=== PATIENT | male | born 1980 | race Caucasian/White ===

== ENCOUNTER 2019-05-06 22:50 | Inpatient (IN) | payer MEDICARE, MEDICAID ==
[~2019-05-06] VITALS: Ht 162.6 cm; Wt 72.1 kg
[2019-05-07 00:25] LABS: BASOPHILS % (AUTO) 0.5 % (0.0-2.0); EOSINOPHILS % (AUTO) 0.4 % (1.0-6.0); HEMOGLOBIN 13.3 g/dL (13.5-17.5); LYMPHOCYTES # (AUTO) 1.3 K/uL (1.0-4.8); LYMPHOCYTES % (AUTO) 14.3 % (22.0-44.0); MEAN CORPUSCULAR HEMOGLOBIN 30.2 pg (26.0-34.0); MEAN CORPUSCULAR HGB CONC 33.2 G/dL (31.0-37.0); MEAN CORPUSCULAR VOLUME 91 fL (80-100); MONOCYTES # (AUTO) 0.5 K/uL (0.1-1.0); MONOCYTES % (AUTO) 5.1 % (2.0-9.0); NEUTROPHILS # (AUTO) 7.1 K/uL (1.8-7.7); NEUTROPHILS % (AUTO) 79.7 % (40.0-70.0); PLATELET COUNT (AUTO) 251 K/uL (150-450); RED CELL DISTRIBUTION WIDTH 14.3 % (11.5-14.5)
[2019-05-07 00:31] LABS: ANION GAP 9 mmol/L (8-16); CALCIUM, TOTAL 8.5 mg/dL (8.8-10.5); CARBON DIOXIDE 26 mmol/L (22-29); CHLORIDE 99 mmol/L (98-107); CREATININE 0.98 mg/dL (0.60-1.30); GLOMERULAR FILTR. RATE CALC > 60 mL/min (>60); GLUCOSE,RANDOM 94 mg/dL (70-110); POTASSIUM 3.4 mmol/L (3.5-5.1); SODIUM SERUM 134 mmol/L (136-145); UREA NITROGEN, BLOOD 12 mg/dL (7-18)
[2019-05-07 00:37] LABS: ALANINE AMINOTRANSFERASE 26 U/L (12-78); ALBUMIN 4.2 g/dL (3.4-5.0); ALKALINE PHOSPHATASE 87 U/L (46-116); ASPARTATE AMINOTRANSFERASE 17 U/L (15-37); BILIRUBIN,TOTAL 0.7 mg/dL (0.1-1.0); TOTAL PROTEIN, SERUM 7.3 g/dL (6.4-8.2)
[2019-05-07] MEDS ORDERED: LORazepam 2 MG TABLET PO ONE (00:45)
[2019-05-07] MEDS ORDERED: HALOPERIDOL 5 MG TABLET PO ONE (00:45)
[2019-05-07 01:07] LABS: AMPHET/METH SCREEN,URINE POSITIVE (NEGATIVE); BARBITURATE SCREEN, URINE NEGATIVE (NEGATIVE); BENZODIAZEPINES SCREEN,URINE NEGATIVE (NEGATIVE); CANNABINOID SCREEN,URINE NEGATIVE (NEGATIVE); COCAINE SCREEN,URINE NEGATIVE (NEGATIVE); METHADONE SCREEN, URINE NEGATIVE (NEGATIVE); OPIATE SCREEN,URINE NEGATIVE (NEGATIVE); PHENCYCLIDINE SCREEN,URINE NEGATIVE (NEGATIVE)
[2019-05-07] MEDS ORDERED: DiphenhydrAMINE HCL 50 MG/ML VIAL IM ONE (01:15)
[2019-05-07] MEDS ORDERED: ZOLPIDEM TARTRATE 10 MG TABLET PO PRN (01:30)
[2019-05-07] MEDS ORDERED: HALOPERIDOL 5 MG TABLET PO PRN (01:30)
[2019-05-07] MEDS ORDERED: LORazepam 2 MG TABLET PO PRN (01:30)
[2019-05-07] MEDS ORDERED: 0.9% SODIUM CHLORIDE 10 ML SYRINGE IVP PRN (01:45)
[2019-05-07] MEDS ORDERED: ACETAMINOPHEN 325 MG TABLET PO PRN ×2 (01:45→13:00)
[2019-05-07] MEDS ORDERED: HALOPERIDOL LACTATE 5 MG/ML VIAL IM ONE (02:45)
[2019-05-07 03:07] LABS: APPEARANCE,URINE CLEAR (CLEAR); BILIRUBIN,URINE NEGATIVE (NEGATIVE); GLUCOSE, URINE (UA) NEGATIVE (NEGATIVE); KETONES,URINE >=80 mg/dL (NEGATIVE); LEUKOCYTE ESTERASE ,URINE NEGATIVE (NEGATIVE); NITRATE,URINE NEGATIVE (NEGATIVE); OCCULT BLOOD,URINE NEGATIVE (NEGATIVE); PH,URINE 5.5 (5.0-8.0); PROTEIN,URINE NEGATIVE (NEGATIVE); UROBILINOGEN,URINE 0.2 mg/dL (<=1.0)
[2019-05-07 04:26] VITALS: BP 113/64
[2019-05-07] MEDS ORDERED: INFLUENZA VIRUS VACCINE QVS 2019-20 (3YR+)/PF 60 MCG/0.5 ML SYRINGE IM ONE (06:00)
[2019-05-07] MEDS: OLANZapine 5 MG TABLET PO SCH ×2 (09:40→21:27)
[2019-05-07] MEDS: TRIHEXYPHENIDYL HCL 5 MG TABLET PO SCH ×2 (10:01→21:27)
[2019-05-07] MEDS ORDERED: IBUPROFEN 400 MG TABLET PO PRN (13:00)
[2019-05-07] MEDS ORDERED: CloNIDine HCL 0.1 MG TABLET PO PRN (13:00)
[2019-05-07] MEDS ORDERED: MAGNESIUM HYDROXIDE SUSPENSION 30 ML UDCUP PO PRN (13:00)
[2019-05-07] MEDS ORDERED: DOCUSATE SODIUM 100 MG CAPSULE PO PRN (13:00)
[2019-05-07] MEDS ORDERED: PETROLATUM,WHITE 28 GM JELLY TP PRN (13:00)
[2019-05-07] MEDS ORDERED: ONDANSETRON HCL 4 MG TABLET PO PRN (13:00)
[2019-05-07] MEDS ORDERED: LOPERAMIDE HCL 2 MG CAPSULE PO PRN (13:00)
[2019-05-07] MEDS ORDERED: GuaiFENesin/D-METHORPHAN [SUGAR-FREE] 200-20MG/10 ML SYRUP UDCUP PO PRN (13:00)
[2019-05-07] MEDS ORDERED: ALBUTEROL SULFATE HFA 90 MCG/PUFF 8 GM INHALER IH PRN (13:00)
[2019-05-07] MEDS ORDERED: MAG HYDROX/AL HYDROX/SIMETH ES 30 ML SUSPENSION UDCUP PO PRN (13:00)
[2019-05-07] MEDS ORDERED: NICOTINE 14 MG/24 HOUR PATCH TD PRN (13:00)
[2019-05-08 07:04] LABS: CHOL/HDL RATIO 3.5 (4.2-7.3)
[2019-05-08 08:00] VITALS: BP 112/69
[2019-05-08] MEDS: OLANZapine 5 MG TABLET PO SCH ×2 (08:37→20:30)
[2019-05-08] MEDS: TRIHEXYPHENIDYL HCL 5 MG TABLET PO SCH ×2 (08:37→20:30)
[2019-05-08 16:06] VITALS: BP 102/98
[2019-05-09 08:11] VITALS: BP 109/63
[2019-05-09] MEDS: TRIHEXYPHENIDYL HCL 5 MG TABLET PO SCH ×2 (08:40→20:09)
[2019-05-09] MEDS: OLANZapine 5 MG TABLET PO SCH (08:40)
[2019-05-09 16:05] VITALS: BP 107/64
[2019-05-09] MEDS: OLANZapine 7.5 MG TABLET PO SCH (20:10)
[2019-05-10] MEDS: TRIHEXYPHENIDYL HCL 5 MG TABLET PO SCH ×2 (08:12→20:20)
[2019-05-10] MEDS: OLANZapine 7.5 MG TABLET PO SCH ×2 (08:12→20:21)
[2019-05-10 13:48] VITALS: BP 114/61
[2019-05-10 16:09] VITALS: BP 112/78
[2019-05-11 08:20] VITALS: BP 119/72
[2019-05-11] MEDS: TRIHEXYPHENIDYL HCL 5 MG TABLET PO SCH ×2 (08:52→20:28)
[2019-05-11] MEDS: OLANZapine 7.5 MG TABLET PO SCH ×2 (08:52→20:29)
[2019-05-11 16:40] VITALS: BP 128/83
[2019-05-12 08:00] VITALS: BP 116/72
[2019-05-12] MEDS: OLANZapine 7.5 MG TABLET PO SCH ×2 (08:44→20:22)
[2019-05-12] MEDS: TRIHEXYPHENIDYL HCL 5 MG TABLET PO SCH ×2 (08:44→20:22)
[2019-05-12 16:00] VITALS: BP 126/86
[2019-05-13] MEDS: OLANZapine 7.5 MG TABLET PO SCH ×2 (09:36→20:32)
[2019-05-13] MEDS: TRIHEXYPHENIDYL HCL 5 MG TABLET PO SCH ×2 (09:36→20:31)
[2019-05-13 15:19] VITALS: BP 120/80
[2019-05-13 17:00] VITALS: BP 129/88
[2019-05-14 00:05] VITALS: BP 102/60
[2019-05-14 08:00] VITALS: BP 126/81
[2019-05-14] MEDS: OLANZapine 7.5 MG TABLET PO SCH (08:21)
[2019-05-14] MEDS: TRIHEXYPHENIDYL HCL 5 MG TABLET PO SCH (08:22)
[2019-05-14] MEDS ORDERED: TRIH5TAB2 PO (09:49)
[2019-05-14] MEDS ORDERED: OLAN7.5T9 PO (09:49)
== END 2019-05-14 13:00 | disposition home or self-care (01) | DRG 885 ==
LOC: EMS 22:53 → 3EC 05-07 03:30
DX: F20.0 Paranoid schizophrenia (principal); R45.851 Suicidal ideations; D64.9 Anemia, unspecified; E87.6 Hypokalemia; F15.10 Other stimulant abuse, uncomplicated; R00.0 Tachycardia, unspecified
CPT/HCPCS: 84132; 93005; G0480; J1200; J1630